=== PATIENT | female | born 1945 | race Caucasian/White ===

== ENCOUNTER 2022-03-11 16:37 | Inpatient (IN) | payer MEDICARE, BC ==
[~2022-03-11] VITALS: Ht 167.6 cm; Wt 69.9 kg
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
--- NOTE | 2022-03-11 17:08 | NUR ---
COVID ANTIGEN SWAB DONE AND SENT TO THE LAB
[2022-03-11 17:16] LABS: BASOPHILS % (AUTO) 0.3 % (0.0-2.0); EOSINOPHILS % (AUTO) 0.7 % (0.0-6.0); HEMATOCRIT 37 % (33-45); HEMOGLOBIN 11.9 g/dL (11.5-14.8); LYMPHOCYTES # (AUTO) 1.2 K/uL (0.8-4.8); LYMPHOCYTES % (AUTO) 13.5 % (20.0-44.0); MEAN CORPUSCULAR HGB CONC 33 g/dl (31.0-36.0); MEAN CORPUSCULAR VOLUME 87 fL (82-100); MONOCYTES # (AUTO) 0.6 K/uL (0.1-1.30); MONOCYTES % (AUTO) 6.8 % (2.0-12.0); NEUTROPHILS # (AUTO) 6.7 K/uL (1.8-8.9); NEUTROPHILS % (AUTO) 78.7 % (43.0-81.0); PLATELET COUNT (AUTO) 229 K/uL (150-450); RED BLOOD CELL COUNT(AUTO) 4.22 MIL/uL (4.0-5.2); WHITE BLOOD COUNT (AUTO) 8.5 K/uL (4.3-11.0)
[2022-03-11 17:34] LABS: CARBON DIOXIDE 22 mmol/L (21-32); CHLORIDE 100 mmol/L (98-107); CREATININE 0.8 mg/dL (0.6-1.3); GLUCOSE 100 mg/dL (74-106); POTASSIUM 3.6 mmol/L (3.5-5.1); SODIUM SERUM 135 mmol/L (136-145); UREA NITROGEN, BLOOD 14 mg/dL (7-18)
[2022-03-11 17:39] LABS: ALANINE AMINOTRANSFERASE 23 U/L (12-78); ALBUMIN 3.4 g/dL (3.4-5.0); ALCOHOL, BLOOD < 3 mg/dL (0-0); ALKALINE PHOSPHATASE 67 U/L (46-116); ASPARTATE AMINOTRANSFERASE 17 U/L (15-37); BILIRUBIN,DIRECT 0.1 mg/dL (0.0-0.2); BILIRUBIN,TOTAL 0.4 mg/dL (0.2-1.0); TOTAL PROTEIN, SERUM 6.6 g/dL (6.4-8.2)
[2022-03-11] MEDS ORDERED: OLOP2.5D12 EACHEYE (17:41)
[2022-03-11] MEDS ORDERED: OLAN5TAB6 PO (17:41)
[2022-03-11] MEDS ORDERED: RISP0.5T65 PO (17:41)
[2022-03-11 17:50] LABS: ACETAMINOPHEN < 10 ug/ml (10-30)
--- NOTE | 2022-03-11 18:10 | NUR ---
URINE COLLECTED AND SENT
[2022-03-11] MEDS ORDERED: OLANZAPINE 10 MG VIAL IM ONE (18:30)
[2022-03-11 18:40] LABS: BILIRUBIN,URINE NEGATIVE (NEGATIVE); COLOR,URINE YELLOW (YELLOW); LEUKOCYTE ESTERASE ,URINE SMALL (NEGATIVE); NITRITE, URINE NEGATIVE (NEGATIVE); PH,URINE 7.5 (5.0-8.0); PROTEIN,URINE NEGATIVE (NEGATIVE); UGLUCOSE NEGATIVE (NEGATIVE); UROBILINOGEN,URINE 0.2 EU/dL (0.2)
[2022-03-11 19:01] LABS: BACTERIA,URINE Few /HPF (None Seen); RBC,URINE 0-2 /HPF (0-2); SQUAMOUS EPITHELIAL CELL,UR Few /HPF (None Seen)
--- NOTE | 2022-03-11 19:48 | NUR ---
ROOM 216-2
--- NOTE | 2022-03-11 20:11 | NUR ---
REPORT GIVEN TO FLOR BERMUDEZ
--- NOTE | 2022-03-11 20:38 | NUR ---
PT TRANSFERRED TO 216 VIA HOSPITAL PROTOCOL. VSS. ALL BELONGINGS WITH PT.
[2022-03-11 20:45] VITALS: BP 158/76
[2022-03-11 21:25] VITALS: BP 144/79
--- NOTE | 2022-03-11 21:30 | NUR ---
PATIENT'S DAUGHTER IN LAW ELLIS CALLED AND CHARGE NURSE NOTIFIED ELLIS ABOUT PATIENT'S ADMISSION AT [facility] IN ROOM 214-1.
[2022-03-11] MEDS ORDERED: MAGNESIUM HYDROXIDE 30 ML UDC PO PRN (22:00)
[2022-03-11] MEDS ORDERED: MAG HYDROX/AL HYDROX/SIMETH 30 ML UDC PO PRN (22:00)
[2022-03-11] MEDS ORDERED: BLOOD SUGAR DIAGNOSTIC 1 EACH STRIP IN ONE (22:00)
[2022-03-11] MEDS ORDERED: ACETAMINOPHEN 325 MG TABLET PO PRN (22:00)
--- NOTE | 2022-03-11 22:05 | NUR ---
GPS ROLLER INSPECTOR NOTE ADMITTED 76 Y/O FEMALE FROM [facility] ER ORIGINALLY FROM HOME. PATIENT IS ON 5150 HOLD FOR GD. PER 5150 HOLD, UPON INTERVIEW CLIENT FACE TO FACE PRESENTS CONFUSED, DELUSIONAL, PARANOID, NON LINEAR THOUGHT PROCESS AND DISORIENTED TO DATE, PLACE AND TIME. PER COLLATERAL, CLIENT COGNITION ABILITIES HAVE BEEN DECLINING AND CLIENT IS UNABLE TO PROVIDE SELF CARE (i e. FOOD, CLOTHING AND/OR RETIREMENT) FOR HERSELF. CLIENT IS UNABLE TO VERBALIZE PLAN FOR SAFETY AND/OR SELF CARE. UPON FACE TO FACE EVALUATION, PATIENT IS A & O X 2-3, FORGETFUL, CONFUSED AT TIMES, ANXIOUS, HYPERVERBAL, DELUSIONAL BUT COOPERATIVE AND CALM, DISORGANIZED, LABILE, DENIES SI/HI UPON ADMISSION AND WILLING TO CONTRACT FOR SAFETY. REDIRECTABLE AT THIS TIME. AMBULATORY BUT UNSTEADY GAIT, FALL RISK. PT EVAL ORDERED. NO ACUTE DISTRESS NOTED. NO C/O PAIN VERBALIZED AT THIS TIME. PATIENT REFUSED TO SIGN ALL ADMISSION PAPERWORK, DISORGANIZED AND WANTED TO SLEEP. FULL BODY SKIN ASSESSMENT DONE, PICTURES TAKEN. PATIENT ADVISED OF HIS HOLD AND PATIENT RIGHTS BOOKLET AND PRESCRIPTION MEDICATION GUIDE GIVEN. PATIENT BELONGINGS WERE INVENTORIED FOR CONTRABAND. PATIENT REFUSED TO REMOVE HER WATCH, GREEN AND YELLOW BRACELET AND HAS THEM WITH HER. MRSA WAS COLLECTED IN ER. PT IS UNDER THE PSYCHIATRIC CARE OF DR. NORRIS AND MEDICAL CARE OF [facility]. PATIENT BED IS IN LOW LOCKED POSITION, SIDE RAILS UP X 3 FOR SAFETY. BED ALARM IS ON. WILL CONTINUE TO MONITOR Q15 MINS FOR MOOD, SAFETY AND BEHAVIOR.
[2022-03-11] MEDS ORDERED: LORAZEPAM 1 MG TABLET PO PRN (22:30)
[2022-03-11] MEDS ORDERED: ZOLPIDEM TARTRATE 5 MG TABLET PO PRN (22:30)
--- NOTE | 2022-03-12 06:06 | NUR ---
PATIENT HAS BEEN SLEEPING COMFORTABLY SINCE ADMITTED TO THE UNIT. NO BEHAVIOR EPISODE NOTED, WILL CONTINUE TO MONITOR.
[2022-03-12 08:00] VITALS: BP 133/70
[2022-03-12 08:15] LABS: CREATININE 0.7 mg/dL (0.6-1.3)
[2022-03-12 08:27] LABS: CHOLESTEROL 209 mg/dL (<200); HDL CHOLESTEROL 66 mg/dL (40-60); LDL 126 mg/dL (0-99); TRIGLYCERIDES 52 mg/dL (30-150)
[2022-03-12] MEDS ORDERED: HOME MED MISCELLANEOUS XX SCH (11:00)
[2022-03-12] MEDS ORDERED: risperiDONE 1 MG TABLET PO STA (14:49)
[2022-03-12 16:00] VITALS: BP 153/70
[2022-03-12] MEDS: risperiDONE 1 MG TABLET PO SCH (16:36)
[2022-03-12] MEDS: OLOPATADINE HCL 0.1% OPHTH BOTTLE EACHEYE SCH (17:03)
--- NOTE | 2022-03-12 19:15 | NUR ---
GPS RN NOTES RECEIVED PATIENT IN HER BED RESTING COMFORTABLY. AWAKE, ALERT AND ORIENTED X3. NO S/SX OF ACUTE DISTRESS NOTED. PATIENT IS CALM UPON APPROACH, FORGETFUL AND CONFUSED AT TIMES. NO VERBALIZATION OF THOUGHTS AND FEELINGS. SAFETY PRECAUTIONS MAINTAINED. WILL CONTINUE TO MONITOR Q15MIN ROUNDS FOR SAFETY AND BEHAVIOR.
[2022-03-12 20:00] VITALS: BP 145/72
[2022-03-12] MEDS: DONEPEZIL 5 MG TABLET PO SCH ×2 (21:12→21:35)
--- NOTE | 2022-03-12 21:35 | NUR ---
GPS RN NOTES: MEDICATION REFUSAL PATIENT REFUSED SCHEDULED ARICEPT FOR TONIGHT. EDUCATED PATIENT REGARDING MEDICATION COMPLIANCE HOWEVER PATIENT CONTINUED TO REFUSE. PATIENT STATED "I AM SENSITIVE TO ANY MEDICATIONS, IT GIVES ME HEADACHE". WILL CONTINUE TO MONITOR.
[2022-03-13 08:00] VITALS: BP 148/74
[2022-03-13] MEDS: risperiDONE 1 MG TABLET PO SCH ×2 (08:20→17:39)
[2022-03-13] MEDS: OLOPATADINE HCL 0.1% OPHTH BOTTLE EACHEYE SCH ×2 (08:20→16:54)
--- NOTE | 2022-03-13 08:21 | NUR ---
RN NOTES PATIENT REFUSED RISPERIDONE FOR 0900 AM. EXPLAINED THE BENEFITS AND USE OF MEDICATION. PATIENT STILL REFUSING. PATIENT STATED " SHE GETS HEADACHE WHEN TAKING THIS MEDICATION."
[2022-03-13 16:00] VITALS: BP 124/75
--- NOTE | 2022-03-13 16:35 | NUR ---
POINT OF CONTACT: MARTY CALLED AND SPOKE TO THE PATIENT'S DAUGHTER, CRISTIAN [phone] TO GATHER COLLATERAL INFORMATION. CRISTAIN WILL TRY TO LOCATE ANY POA PAPERWORK AND FAX TO MARTY. MARTY was notified by daughter in law, Briana [phone] that they are in the process of gaining conservatorship for the pt. Noted.
--- NOTE | 2022-03-13 16:35 | NUR ---
INITIAL DISCHARGE PLAN: THE PT. A HOME [[address] [place] [address]] THAT SHE OWNS WITH , CICI JIMENEZ. PT. STATES SHE DOES NOT WANT TO RETURN THERE AND WANTS HER OWN APARTMENT. DAUGHTER, CRISTIAN [phone] AND SON WANT SNF PLACEMENT FOR HER SAFETY(POSSIBLE UNDIAGNOSED DEMENTIA). SW WILL CONTINUE TO COLLABORATE WITH PSYCHIATRIST TO ENSURE SAFER DISCHARGE PLAN.
[2022-03-13 20:00] VITALS: BP 137/73
--- NOTE | 2022-03-13 20:39 | NUR ---
RN NOTES: PATIENT RESTING IN ROOM. NO S/SX OF ACUTE DISTRESS NOTED, EASILY AGITATED, DISORGANIZED,FORGETFUL. ENCOURAGED TO VERBALIZE ANY FEELING OR CONCERN AND ENCOURAGED TO PARTICIPATE IN THE GROUP ACTIVITIES,DENIES SI/HI AT THIS TIME. SAFETY MEASURES IN PLACE. WILL CONTINUE TO MONITOR Q15MIN ROUNDS FOR SAFETY AND BEHAVIOR.
[2022-03-13] MEDS: DONEPEZIL 5 MG TABLET PO SCH (21:11)
[2022-03-14 08:00] VITALS: BP 149/78
[2022-03-14] MEDS: risperiDONE 1 MG TABLET PO SCH ×2 (09:17→18:26)
[2022-03-14] MEDS: OLOPATADINE HCL 0.1% OPHTH BOTTLE EACHEYE SCH ×2 (09:18→18:10)
[2022-03-14 16:00] VITALS: BP 117/54
[2022-03-14 20:00] VITALS: BP 116/52
[2022-03-14] MEDS: DONEPEZIL 5 MG TABLET PO SCH (21:25)
[2022-03-14] MEDS ORDERED: LORAZEPAM 1 MG TABLET PO PRN (22:00)
[2022-03-14] MEDS ORDERED: ZOLPIDEM TARTRATE 5 MG TABLET PO PRN (22:00)
[2022-03-15 08:00] VITALS: BP 130/67
[2022-03-15] MEDS: risperiDONE 1 MG TABLET PO SCH ×2 (08:21→16:43)
[2022-03-15] MEDS: OLOPATADINE HCL 0.1% OPHTH BOTTLE EACHEYE SCH ×2 (09:00→16:43)
[2022-03-15 16:00] VITALS: BP 117/66
--- NOTE | 2022-03-15 20:25 | NUR ---
RN NOTES: PATIENT RESTING IN ROOM. AWAKE ALERT X 3 ,NO S/SX OF ACUTE DISTRESS NOTED, EASILY AGITATED, DISORGANIZED,FORGETFUL. ENCOURAGED TO VERBALIZE ANY FEELING OR CONCERN AND ENCOURAGED TO PARTICIPATE IN THE GROUP ACTIVITIES,DENIES SI/HI AT THIS TIME. SAFETY MEASURES IN PLACE. WILL CONTINUE TO MONITOR Q15MIN ROUNDS FOR SAFETY AND BEHAVIOR.
[2022-03-15 20:52] VITALS: BP_SYST 114; BP_SYST 117; BP_DIAS 55; BP_DIAS 65
[2022-03-15] MEDS: DONEPEZIL 5 MG TABLET PO SCH (21:30)
[2022-03-16 08:00] VITALS: BP 118/60
[2022-03-16] MEDS: risperiDONE 1 MG TABLET PO SCH ×2 (08:13→17:53)
[2022-03-16] MEDS: OLOPATADINE HCL 0.1% OPHTH BOTTLE EACHEYE SCH ×2 (08:15→17:52)
[2022-03-16 16:00] VITALS: BP 120/59
[2022-03-16 20:31] VITALS: BP 131/63
[2022-03-16] MEDS: DONEPEZIL 5 MG TABLET PO SCH (21:09)
[2022-03-17 08:00] VITALS: BP 126/70
[2022-03-17] MEDS: risperiDONE 1 MG TABLET PO SCH ×2 (08:16→16:20)
[2022-03-17] MEDS: OLOPATADINE HCL 0.1% OPHTH BOTTLE EACHEYE SCH ×2 (08:17→16:20)
--- NOTE | 2022-03-17 09:47 | NUR ---
RN-CO: PATIENT DENIED PAIN AND DISCOMFORTS, COOPERATIVE TO CARE. UP FOR NEEDS, CONCERN ABOUT OTHER PATIENTS. SHE HAS APPROPRIATE AFFECT. SHE NEEDS MINIMAL TO MODERATE ASSISTANCE WITH ADL.
--- NOTE | 2022-03-17 15:26 | NUR ---
SW Note: SW spoke with patient in regards to placement and where pt would go. Pt refused to go to nursing facility and stated that she wants to go back home. Pt reported that she is fully capable of taking care of herself and refused other placements.
--- NOTE | 2022-03-17 15:27 | NUR ---
SW Note: Pt reported that this song writer cannot speak to Briana FERGUSON and only to speak to daughter Gay.
--- NOTE | 2022-03-17 15:28 | NUR ---
MARTY Family Contact: MARTY contacted DAUGHTER, GAY [phone] and stated that pt is refusing facility and refusing for staff to speak to Briana. Gay stated that she will speak to pt and see what the next step will be.
[2022-03-17 16:00] VITALS: BP 145/73
[2022-03-17 20:46] VITALS: BP 121/72
[2022-03-17] MEDS: DONEPEZIL 5 MG TABLET PO SCH (21:52)
[2022-03-18 08:00] VITALS: BP 147/72
[2022-03-18] MEDS: OLOPATADINE HCL 0.1% OPHTH BOTTLE EACHEYE SCH ×2 (09:23→16:25)
[2022-03-18] MEDS: risperiDONE 1 MG TABLET PO SCH ×2 (09:23→16:25)
--- NOTE | 2022-03-18 10:41 | NUR ---
MARTY Family Contact: MARTY spoke with patient's daughter Gay ([phone]) who stated that they are currently looking into finding pt a memory care unit.
--- NOTE | 2022-03-18 10:41 | NUR ---
SW Note: SW spoke with pt in regards to pt not having an apartment or condo. SW stated she cannot live with her daughter, per her daughter. Pt is agreeable of placement.
--- NOTE | 2022-03-18 11:34 | NUR ---
Court Notification: SW notified pt's daughter Gay ([phone]) of pt's 1360 hearing.
--- NOTE | 2022-03-18 11:35 | NUR ---
Court Hearing: Patient's court hearing for 5150 was today and it as upheld for GD.
--- NOTE | 2022-03-18 14:39 | NUR ---
FACILITY CONTACT: MARTY SPOKE WITH CRISTIANE DOMINGUEZ ([phone]) AND SHE STATED THAT THEY WILL BE EVALUATING PT TOMORROW. SHE STATED THE NURSE WILL CONTACT THIS RETAIL SERVICE SPECIALIST.
--- NOTE | 2022-03-18 14:39 | NUR ---
APS: MARTY RECEIVED A CALL FROM APS WORKER BRODIE ([phone]) AND HAD LEFT A VOICEMAIL TO THIS ENTERPRISE SOFTWARE DEVELOPER. SW CONTACTED BACK AND LEFT A VOICEMAIL.
[2022-03-18 16:00] VITALS: BP_SYST 115; BP_SYST 143; BP_DIAS 59; BP_DIAS 68
[2022-03-18 20:03] VITALS: BP 122/61
[2022-03-18] MEDS: DONEPEZIL 5 MG TABLET PO SCH (21:13)
--- NOTE | 2022-03-18 21:17 | NUR ---
GPS RN NOTES: MEDICATION REFUSAL PATIENT REFUSED SCHEDULED ARICEPT FOR TONIGHT. EDUCATED PATIENT REGARDING MEDICATION COMPLIANCE HOWEVER PATIENT CONTINUED TO REFUSE. PATIENT STATED "NO, I DON'T WANT IT." WILL CONTINUE TO MONITOR.
[2022-03-19 08:00] VITALS: BP 127/68
[2022-03-19] MEDS: risperiDONE 1 MG TABLET PO SCH ×2 (09:18→16:32)
[2022-03-19] MEDS: OLOPATADINE HCL 0.1% OPHTH BOTTLE EACHEYE SCH ×2 (09:19→16:32)
--- NOTE | 2022-03-19 11:44 | NUR ---
FACILITY CONTACT: MARTY SPOKE WITH CRISTIANE DOMINGUEZ ([phone]) AND STATED THAT PT IS ACCEPTED.
--- NOTE | 2022-03-19 11:49 | NUR ---
MARTY Family Contact: MARTY spoke with patient's daughter Gay ([phone]) who stated that family is deciding on which facility either [facility] or [facility].
[2022-03-19 16:00] VITALS: BP 150/77
--- NOTE | 2022-03-19 19:13 | NUR ---
GPS RN NOTES RECEIVED PATIENT IN HER BED RESTING COMFORTABLY. ALERT AND ORIENTED X3. NO S/SX OF ACUTE DISTRESS NOTED. PATIENT IS CALM UPON APPROACH, FORGETFUL AND CONFUSED AT TIMES, WITH NO INTERACTION WITH PEERS. NO VERBALIZATION OF THOUGHTS AND FEELINGS. SAFETY PRECAUTIONS MAINTAINED. WILL CONTINUE TO MONITOR Q15MIN ROUNDS FOR SAFETY AND BEHAVIOR.
[2022-03-19 20:00] VITALS: BP 109/53
[2022-03-19] MEDS: DONEPEZIL 5 MG TABLET PO SCH ×2 (21:12→21:16)
--- NOTE | 2022-03-19 21:34 | NUR ---
GPS RN NOTES: MEDICATION REFUSAL PATIENT REFUSED SCHEDULED ARICEPT FOR TONIGHT. EDUCATED PATIENT REGARDING MEDICATION COMPLIANCE HOWEVER PATIENT CONTINUED TO REFUSE. OFFERED X3. PATIENT STATED "NO, I DON'T WANT TO TAKE IT." WILL CONTINUE TO MONITOR.
[2022-03-20 08:00] VITALS: BP 138/70
[2022-03-20] MEDS: risperiDONE 1 MG TABLET PO SCH ×2 (09:00→17:29)
[2022-03-20] MEDS: OLOPATADINE HCL 0.1% OPHTH BOTTLE EACHEYE SCH ×2 (09:00→17:29)
--- NOTE | 2022-03-20 13:57 | NUR ---
SW Note: MARTY spoke with patient's Vincenzo JEWELL ([phone]) who stated that he is involved in the care but prefers for Gay ([phone]) to be involved in the care. MARTY contacted Gay and discussed pt's discharge plan. She stated that they would prefer a nursing facility at this time. MARTY spoke with Briana ([phone]) who stated that they will work together as a family to figure out which facility they would want.
--- NOTE | 2022-03-20 14:53 | NUR ---
SNF Referral: MARTY sent clinicals to Mindy ([phone]) for placement options at [facility]. MARTY sent H & P, progress notes, and medication list.
--- NOTE | 2022-03-20 14:55 | NUR ---
SNF Contact: MARTY spoke with Mindy ([phone]) at [facility] who stated that pt is accepted.
--- NOTE | 2022-03-20 15:03 | NUR ---
MARTY Family Contact: MARTY spoke with patient's daughter Gay ([phone]) and notified that pt is accepted at [facility] and this group underwriter sent clinicals to [facility] for review.
--- NOTE | 2022-03-20 15:03 | NUR ---
SNF Referral: MARTY sent clinicals to Lizbeth from [facility] ([phone]) for placement option. MARTY sent H & P, progress notes, and medication list.
[2022-03-20 16:00] VITALS: BP 104/60
--- NOTE | 2022-03-20 19:00 | NUR ---
RN-NOTES PATIENT VISIBLE IN THE UNIT A/O X2,CALM,GUARDED,NO ACUTE DISTRESS NOTED. COMPLIANT WITH MEDICATIONS.AMBULATORY STEADY GAIT. ABLE TO MAKE NEEDS KNOWN TO THE STAFF. ALL NEEDS ATTENDED AND ANTICIPATED. WILL CONT. MONITORING FOR SAFETY AND BEHAVIOR. WILL ENDORSE TO INCOMING SHIFT FOR CONTINUITY OF CARE.
[2022-03-20 20:00] VITALS: BP 104/58
[2022-03-20 20:08] VITALS: BP 104/58
[2022-03-20] MEDS: DONEPEZIL 5 MG TABLET PO SCH (21:15)
--- NOTE | 2022-03-20 21:15 | NUR ---
GPS RN NOTES: MEDICATION REFUSAL PATIENT REFUSED SCHEDULED ARICEPT FOR TONIGHT. EDUCATED PATIENT REGARDING MEDICATION COMPLIANCE HOWEVER PATIENT CONTINUED TO REFUSE. OFFERED X3. PATIENT STATED "I DON'T WANT TO TAKE THAT PILL, I AM FINE WITHOUT IT." WILL CONTINUE TO MONITOR.
--- NOTE | 2022-03-21 07:08 | NUR ---
RN NOTE: PATIENT SLEPT WELL AT NIGHT, NO ACUTE CHANGES NOTED THROUGH OUT THE NIGHT. PATIENT REMAINED CALM AND COOPERATIVE BUT ISOLATIVE/WITHDRAWN. WILL ENDORSE TO AM RN.
[2022-03-21 08:00] VITALS: BP 132/73
--- NOTE | 2022-03-21 08:21 | NUR ---
SNF Contact: SW spoke with Lizbeth from [facility] ([phone]) who stated pt is accepted.
--- NOTE | 2022-03-21 08:21 | NUR ---
SNF Referral: Per patient's daughter request, MARTY sent clinicals to [facility] via fax at for placement. SW sent H & P, progress notes, and medication list.
[2022-03-21] MEDS: OLOPATADINE HCL 0.1% OPHTH BOTTLE EACHEYE SCH ×2 (08:50→17:31)
[2022-03-21] MEDS: risperiDONE 1 MG TABLET PO SCH ×2 (08:50→17:32)
--- NOTE | 2022-03-21 09:35 | NUR ---
SNF Contact: SW received a call from [facility] director [facility] ([phone]) who stated that pt is accepted.
--- NOTE | 2022-03-21 09:48 | NUR ---
SNF Referral: MARTY sent clinicals to Sarah from [facility] ([phone]) for placement option. MARTY sent H & P, progress notes, and medication list.
--- NOTE | 2022-03-21 09:48 | NUR ---
SNF Contact: SW spoke with Sarah roe- from [facility] ([phone]) who stated pt is accepted.
--- NOTE | 2022-03-21 09:49 | NUR ---
MARTY Family Contact: SW spoke with patient's daughter Gay ([phone]) and notified patient is accepted at four nursing facilities: [facility], [facility], [facility], and [facility].
--- NOTE | 2022-03-21 09:57 | NUR ---
MARTY Note: MARTY spoke with special delivery mail carrier Chante [phone], who sent documents of person and estate who will be granted Vincenzo (). Court hearing March 21 at 8:30AM and senior trial attorney Chante notified that he will contact this signwriter of outcome.
--- NOTE | 2022-03-21 11:40 | NUR ---
[facility] CONTACT: PER FAMILY REQUEST THEY WOULD WANT [facility]. SW HAS BEEN IN CONTACT WITH [facility] ([phone]) WHO STATED THAT PT IS ACCEPTED AND THEY WILL EVALUATE PT ON 03/22. SHE STATED THAT THEY WILL PROVIDE TRANSPORTATION ON 03/24, THURSDAY, SHE WILL LET THIS PATROL OFFICER KNOW EXACTLY WHAT TIME.
--- NOTE | 2022-03-21 11:42 | NUR ---
MARTY Family Contact: MARTY spoke with patient's daughter Gay ([phone]) who is the DPOA stated she is agreeable of pt going to [facility] on Thursday03/24/2022. Addendum: 03/21/22 at 1613 by MARTY LEIVA MARTY had reminded daughter that Dr. Kang had recommended a locked unit she stated [facility] is a locked unit and family wanted this facility.
[2022-03-21 16:00] VITALS: BP 123/65
--- NOTE | 2022-03-21 20:41 | NUR ---
RN NOTES: PATIENT RESTING IN ROOM. NO S/SX OF ACUTE DISTRESS NOTED, EASILY AGITATED, DISORGANIZED,FORGETFUL,GUARDED, ISOLATIVE. ENCOURAGED TO VERBALIZE ANY FEELING OR CONCERN AND ENCOURAGED TO PARTICIPATE IN THE GROUP ACTIVITIES,DENIES SI/HI AT THIS TIME. SAFETY MEASURES IN PLACE. WILL CONTINUE TO MONITOR Q15MIN ROUNDS FOR SAFETY AND BEHAVIOR.
[2022-03-21 20:59] VITALS: BP 119/66
[2022-03-21] MEDS: DONEPEZIL 5 MG TABLET PO SCH (21:26)
--- NOTE | 2022-03-21 21:29 | NUR ---
GPS RN NOTES: MEDICATION REFUSAL PATIENT REFUSED SCHEDULED PO ARICEPT 5MG FOR TONIGHT. EDUCATED PATIENT REGARDING MEDICATION COMPLIANCE HOWEVER PATIENT CONTINUED TO REFUSE. OFFERED X3. PATIENT STATED "I DON'T WANT TO TAKE , I AM FINE WITHOUT IT." WILL CONTINUE TO MONITOR.
[2022-03-22] MEDS: OLOPATADINE HCL 0.1% OPHTH BOTTLE EACHEYE SCH ×2 (07:54→16:53)
[2022-03-22] MEDS: risperiDONE 1 MG TABLET PO SCH ×2 (07:55→16:54)
[2022-03-22 08:00] VITALS: BP 152/75
[2022-03-22 16:00] VITALS: BP 113/72
[2022-03-22 20:39] VITALS: BP 131/62
[2022-03-22] MEDS: DONEPEZIL 5 MG TABLET PO SCH (21:46)
[2022-03-23 08:00] VITALS: BP 133/70
[2022-03-23] MEDS: risperiDONE 1 MG TABLET PO SCH ×2 (08:45→17:29)
[2022-03-23] MEDS: OLOPATADINE HCL 0.1% OPHTH BOTTLE EACHEYE SCH ×2 (08:46→16:55)
[2022-03-23 16:00] VITALS: BP 127/71
[2022-03-23 19:20] VITALS: BP 124/66
[2022-03-23 20:06] VITALS: BP 124/66
[2022-03-23] MEDS: DONEPEZIL 5 MG TABLET PO SCH (22:00)
[2022-03-23] MEDS ORDERED: ATORVASTATIN 40 MG TABLET PO SCH (22:00)
--- NOTE | 2022-03-23 22:10 | NUR ---
RN NOTE: MEDICATION REFUSAL PATIENT REFUSED 2200 MEDICATIONS LIPITOR AND ARICEPT X 3 ORDERED BY MD DESPITE OF RISKS AND BENEFITS EXPLANATIONS.
[2022-03-24 08:00] VITALS: BP 108/59
--- NOTE | 2022-03-24 08:00 | NUR ---
SW Discharge Note: Patient will be discharged to [facility] located at [address] [place] [address]; ([phone]). Facility will provide transportation at 11AM. Patients daughter FANTA Rashid ([phone]) is aware and agreeable of discharge. [facility] ([phone]) is welcoming patient today. Patient is alert and oriented x3. Patient denies visual/auditory hallucinations. Patient denies suicidal or homicidal ideation. Patient will follow up with the primary doctor Dr. Aylin Shen at the facility located at [address] [place] [address]; ([phone]). who will monitor and provide psychotropic medications.
--- NOTE | 2022-03-24 08:07 | NUR ---
SW Note: Patient agreeable of going to [facility] unit.
--- NOTE | 2022-03-24 08:08 | NUR ---
MARTY Note: MARTY notified pt's daughter Gay of the capacity paperwork that outpatient doctor can sign this document. Dr. Kang stated he is unable to sign.
[2022-03-24] MEDS: OLOPATADINE HCL 0.1% OPHTH BOTTLE EACHEYE SCH (09:00)
[2022-03-24] MEDS: risperiDONE 1 MG TABLET PO SCH (10:27)
--- NOTE | 2022-03-24 14:31 | NUR ---
RN NOTES PT SPOKE TO DAUGHTER AND IS READY AND EXCITED TO TRANSFER, ALL BELONGINGS GIVEN BACK TO PT AND SHE UNDERSTANDS , EXPLAINED TRANSFER AND DOCUMENTS TO SIGN, PT WILL GO TO [facility] located at [address] [place] [address]; ([phone]). Patients daughter IS FANTA Rashid ([phone]) is aware OF THE D/C & IN AGREEMENT of discharge. Ivel[facility] ([phone]) WILL CHECK PT IN AT NEW LOCATION Patient is alert and oriented x3. Patient denies visual/auditory hallucinations. Patient denies suicidal or homicidal ideation. Patient will follow up with the primary doctor Dr. Aylin Shen at the facility located at [address] [place] [address]; ([phone]). who will monitor and provide psychotropic medications , TRANSFER IS DELAYED, WE ARE AWAITING TRANSPORT ARRIVAL AT THIS TIME.
--- NOTE | 2022-03-24 15:38 | NUR ---
RN NOTES SAFE TRANSFER OUT TO TRANSPORTATION, PHOTOGRAPH FINISHER PRESENT AND CORRECTIONAL SECURITY OFFICER FOR THE VEHICLE PRESENT SAFE FROM UNIT TO OUT SIDE BLDG DOOR TO INSIDE OF VEHICLE. ALL DOCUMENTS SIGNED, REPORT GIVEN AND FACILITY AWARE OF PT ARRIVING SOON. FAMILY AND MD AWARE OF TRANSFER AND APPROVED.
--- NOTE | 2022-03-24 16:27 | NUR ---
MARTY Note: [facility] [phone], ([phone]). MARTY faxed [phone] hold per [facility] request.
== END 2022-03-24 15:00 | DRG 885 ==
LOC: ER 16:46 → GPS 20:22
PROVIDERS: ADMIT Psychiatry & Neurology Psychiatry; ATTEND Internal Medicine
DX: F29 Unspecified psychosis not due to a substance or known physiological condition (principal); E87.1 Hypo-osmolality and hyponatremia; F02.81 Dementia in other diseases classified elsewhere, unspecified severity, with behavioral disturbance; Z90.710 Acquired absence of both cervix and uterus; Z20.822 Contact with and (suspected) exposure to COVID-19; F32.A Depression, unspecified; F41.9 Anxiety disorder, unspecified; Z88.0 Allergy status to penicillin; Z88.1 Allergy status to other antibiotic agents; Z91.041 Radiographic dye allergy status; Z79.899 Other long term (current) drug therapy; Z73.6 Limitation of activities due to disability; G30.9 Alzheimer's disease, unspecified; G31.09 Other frontotemporal neurocognitive disorder; G31.83 Neurocognitive disorder with Lewy bodies; Z91.19 Patient's noncompliance with other medical treatment and regimen; Z91.81 History of falling; R27.8 Other lack of coordination; R53.1 Weakness
CPT/HCPCS: 36415; 71045-TC; 80048-TC; 80061-TC; 80076-TC; 81001; 82565-TC; 82962-TC; 85025-TC; 87081-TC; 87086-TC; 97116-TC; 97530-TC; C9803; G0480; J3490